=== PATIENT | male | born 1970 | race Caucasian/White ===

== ENCOUNTER 2019-07-20 12:27 | Emergency (ER) | payer OTHER ==
[~2019-07-20] VITALS: Ht 162.6 cm; Wt 57.6 kg
[2019-07-20 12:44] VITALS: Ht 162.6 cm; Wt 57.6 kg
[2019-07-20 14:24] VITALS: BP 119/79
== END 2019-07-20 14:24 | disposition home or self-care (01) ==
LOC: ED 12:27
DX: H33.22 Serous retinal detachment, left eye (principal)
CPT/HCPCS: 82962